=== PATIENT | female | born 1975 | race Hispanic/Latino ===

== ENCOUNTER → 2017-06-23 | Outpatient (CLI) | payer OTHER ==
[~2017-06-23] VITALS: Ht 10.2 cm; Wt 109.8 kg
[~2017-06-23] MED LIST: AMOX-426 PO; ZOLP10TA2 PO
== END | disposition home or self-care (01) ==
LOC: DTH 09:41 → MERGE 09:41
PROVIDERS: ATTEND Surgery
DX: E11.9 Type 2 diabetes mellitus without complications (principal); E66.09 Other obesity due to excess calories
CPT/HCPCS: 97802

== ENCOUNTER → 2017-07-29 | Outpatient (CLI) | payer OTHER | END | disposition home or self-care (01) | LOC: DTH 07-28 11:02 → MERGE 10:25 | PROVIDERS: ATTEND Surgery | DX: E11.9 Type 2 diabetes mellitus without complications (principal); E66.09 Other obesity due to excess calories | CPT/HCPCS: 97803 ==

== ENCOUNTER 2017-11-14 10:40 | Emergency (ER) | payer OTHER ==
[~2017-11-14 10:40] MED LIST changes: -AMOX-426 PO; +MV-M1TAB20 PO; -ZOLP10TA2 PO
[2017-11-14] MEDS ORDERED: LIDOCAINE HCL 2% VISCOUS 15 ML UDCUP ONE (11:03)
[2017-11-14] MEDS ORDERED: ONDANSETRON ODT 4 MG TAB ONE (11:04)
[2017-11-14] MEDS ORDERED: MORPHINE SULFATE 4 MG/1ML SYG ONE (11:04)
== END 2017-11-14 12:47 | disposition home or self-care (01) ==
LOC: EDH 10:40
DX: T21.22XA Burn of second degree of abdominal wall, initial encounter (principal); T31.0 Burns involving less than 10% of body surface; Z88.1 Allergy status to other antibiotic agents; X11.8XXA Contact with other hot tap-water, initial encounter; Y93.G3 Activity, cooking and baking; Y92.098 Other place in other non-institutional residence as the place of occurrence of the external cause; Y99.8 Other external cause status
CPT/HCPCS: 16020; 96372; 99284; J2270

== ENCOUNTER → 2018-06-24 | Outpatient (CLI) | payer OTHER ==
[~2018-06-24] MED LIST changes: +IOHEXOL 350 MG/ML 100ML INFUS..BTL IV ONE
== END | disposition home or self-care (01) ==
LOC: RAH 07:55
PROVIDERS: ATTEND Internal Medicine Gastroenterology
DX: K76.89 Other specified diseases of liver (principal); K43.9 Ventral hernia without obstruction or gangrene
CPT/HCPCS: 74178; Q9967

== ENCOUNTER 2018-10-12 21:59 | Emergency (ER) | payer OTHER ==
[~2018-10-12 21:59] MED LIST changes: -IOHEXOL 350 MG/ML 100ML INFUS..BTL IV ONE
[2018-10-12] MEDS ORDERED: CEFTRIAXONE SODIUM 1 GM ONE (22:27)
[2018-10-12] MEDS ORDERED: KETOROLAC TROMETHAMINE 30MG/ML ONE (22:27)
[2018-10-12 22:39] LABS: APPEARANCE,URINE Cloudy (CLEAR); BILIRUBIN,URINE Negative (NEGATIVE); COLOR,URINE Yellow (YELLOW); GLUCOSE, URINE (UA) Negative (NEGATIVE); KETONES,URINE Negative (NEGATIVE); LEUKOCYTE ESTERASE ,URINE Small (NEGATIVE); NITRATE,URINE Positive (NEGATIVE); OCCULT BLOOD,URINE Negative (NEGATIVE); PH,URINE 5.5 (5.0-8.0); PROTEIN,URINE Negative (NEGATIVE)
[2018-10-12 22:58] LABS: BACTERIA,URINE Many /HPF (None Seen); RBC,URINE 0-1 /HPF (0-1)
== END 2018-10-12 23:08 | disposition home or self-care (01) ==
LOC: EDH 21:59
DX: N39.0 Urinary tract infection, site not specified (principal); F32.9 Major depressive disorder, single episode, unspecified; F41.9 Anxiety disorder, unspecified; Z98.890 Other specified postprocedural states
CPT/HCPCS: 81001; 87077; 87088; 87186; 96372 ×2; 99284; J0696; J1885

== ENCOUNTER 2021-08-09 23:24 | Emergency (ER) | payer OTHER ==
[~2021-08-09] VITALS: Ht 165.1 cm; Wt 92.1 kg
[2021-08-10 00:07] LABS: BASOPHILS % (AUTO) 0.5 % (0.0-5.0); EOSINOPHILS % (AUTO) 2.9 % (0.0-8.0); HEMATOCRIT 40.9 % (36-48); LYMPHOCYTES % (AUTO) 24.6 % (21.0-51.0); MEAN CORPUSCULAR HEMOGLOBIN 26.7 pg (27.0-33.0); MEAN CORPUSCULAR VOLUME 83.3 fL (79-99); NEUTROPHILS % (AUTO) 65.8 % (40.0-77.0); PLATELET COUNT (AUTO) 238 K/uL (130-400); RED BLOOD CELL COUNT(AUTO) 4.91 MIL/uL (4.00-5.50); RED CELL DISTRIBUTION WIDTH 13.2 % (11.0-15.5); WHITE BLOOD COUNT (AUTO) 9.2 K/uL (4.8-10.8)
[2021-08-10 00:16] LABS: CREATININE 0.7 mg/dL (0.5-1.5); POTASSIUM 3.8 mmol/L (3.5-5.1)
[2021-08-10 00:20] LABS: ALBUMIN 3.8 g/dL (3.5-5.0); BILIRUBIN,TOTAL 0.3 mg/dL (0.2-1.0); TOTAL PROTEIN, SERUM 7.6 g/dL (6.0-8.3)
[2021-08-10 00:50] LABS: APPEARANCE,URINE CLEAR (CLEAR); BILIRUBIN,URINE NEGATIVE (NEGATIVE); COLOR,URINE YELLOW (YELLOW); GLUCOSE, URINE (UA) 250 mg/dL (NEGATIVE); KETONES,URINE NEGATIVE (NEGATIVE); LEUKOCYTE ESTERASE ,URINE NEGATIVE (NEGATIVE); NITRATE,URINE POSITIVE (NEGATIVE); OCCULT BLOOD,URINE TRACE-INTACT (NEGATIVE); PROTEIN,URINE NEGATIVE (NEGATIVE); UROBILINOGEN,URINE 0.2 mg/dL (0.2-1.0)
[2021-08-10 00:51] LABS: HCG,QUAL RESULT NEGATIVE (NEGATIVE)
[2021-08-10 01:08] LABS: BACTERIA,URINE Moderate /HPF (None Seen); MUCUS,URINE Rare LPF (None Seen); RBC,URINE 0-1 /HPF (0-1); SQUAMOUS EPITHELIAL CELL,UR Few /HPF (0-2); WBC,URINE None Seen /HPF (0-1)
[2021-08-10] MEDS ORDERED: KETOROLAC 60 MG VIAL (30MG/ML) IM ONE (02:00)
[2021-08-10] MEDS ORDERED: CEFTRIAXONE 1G VIAL IM ONE (02:00)
[2021-08-10] MEDS ORDERED: CEPH500B PO (02:05)
[2021-08-10 02:15] VITALS: BP 116/72
== END 2021-08-10 02:36 | disposition home or self-care (01) ==
LOC: EDH 23:24
DX: N39.0 Urinary tract infection, site not specified (principal); Z88.8 Allergy status to other drugs, medicaments and biological substances; Z98.890 Other specified postprocedural states; Z90.49 Acquired absence of other specified parts of digestive tract
CPT/HCPCS: 36415; 80053; 81001; 81025; 83690; 84484; 85025; 87077; 87088; 87186; 93005; 96372 ×2; 99284; J0696; J1885

== ENCOUNTER → 2021-12-17 | Outpatient (CLI) | payer OTHER ==
[~2021-12-17] MED LIST changes: +CEPH500B PO
== END | disposition home or self-care (01) ==
LOC: RAH 08:35
PROVIDERS: ATTEND Surgery
DX: K21.9 Gastro-esophageal reflux disease without esophagitis (principal); R13.10 Dysphagia, unspecified; Z98.84 Bariatric surgery status
CPT/HCPCS: 74240

== ENCOUNTER 2021-12-29 07:02 | Day surgery (SDC) | payer OTHER ==
[~2021-12-29] VITALS: Ht 162.6 cm; Wt 94.3 kg
[2021-12-29] VITALS (7 sets, daily range): BP systolic 105–118; BP diastolic 62–74
[2021-12-29] MEDS ORDERED: 0.9%NACL 1000ML 1,000 ML IV ONE (07:04)
[2021-12-29] MEDS ORDERED: VITAD50000 PO (08:11)
[2021-12-29] MEDS ORDERED: SODIUM TETRADECYL SULFATE 30 MG/ML 2 ML VIAL IV SCH (08:30)
[2021-12-29] MEDS ORDERED: PROPOFOL 10 MG/ML 20ML VIAL IV ONE (08:55)
[2021-12-29] MEDS ORDERED: MEPERIDINE-PF 25 MG/ML SYG ONE (09:36)
== END 2021-12-29 09:41 | disposition home or self-care (01) ==
LOC: DAH 07:02
PROVIDERS: ATTEND Surgery
DX: R13.10 Dysphagia, unspecified (principal); Z20.822 Contact with and (suspected) exposure to COVID-19; E66.01 Morbid (severe) obesity due to excess calories; F41.9 Anxiety disorder, unspecified; F32.A Depression, unspecified; Z90.49 Acquired absence of other specified parts of digestive tract; Z98.890 Other specified postprocedural states; Z90.710 Acquired absence of both cervix and uterus; Z98.891 History of uterine scar from previous surgery; Z83.3 Family history of diabetes mellitus; Z98.84 Bariatric surgery status; Z80.9 Family history of malignant neoplasm, unspecified; Z87.891 Personal history of nicotine dependence; Z68.34 Body mass index [BMI] 34.0-34.9, adult
CPT/HCPCS: 87426; 43236; J7030 ×2; J2704; J2175; J3490; A4620; A4215; A4223; A4657; A4222; A4221; A4663; A4216; A4606; 43253

== ENCOUNTER 2022-01-30 07:07 | Day surgery (SDC) | payer OTHER ==
[~2022-01-30] VITALS: Ht 162.6 cm; Wt 93.9 kg
[~2022-01-30 07:07] MED LIST changes: -CEPH500B PO; -MV-M1TAB20 PO; +TIRZ10PE SQ; +VITAD50000 PO
[2022-01-30 07:33] VITALS: BP 111/66
[2022-01-30] MEDS ORDERED: 0.9%NACL 1000ML 1,000 ML IV ONE (07:36)
[2022-01-30] MEDS ORDERED: PROPOFOL 10 MG/ML 20ML VIAL IV ONE (08:05)
[2022-01-30] MEDS ORDERED: LIDOCAINE PF 100MG/5ML (2%) SYRINGE 5ML ONE (08:05)
[2022-01-30] MEDS ORDERED: FENTANYL CITRATE PF 50 MCG/1 ML 2ML VIAL ONE (08:08)
[2022-01-30] MEDS ORDERED: ONDANSETRON 4MG INJ ONE (08:08)
[2022-01-30 08:30] VITALS: BP 105/67
[2022-01-30] MEDS ORDERED: SODIUM TETRADECYL SULFATE 30 MG/ML 2 ML VIAL IV ONE (08:30)
== END 2022-01-30 09:15 | disposition home or self-care (01) ==
LOC: DAH 07:07
PROVIDERS: ATTEND Surgery
DX: K21.9 Gastro-esophageal reflux disease without esophagitis (principal); Z20.822 Contact with and (suspected) exposure to COVID-19; R13.10 Dysphagia, unspecified; F41.9 Anxiety disorder, unspecified; F32.A Depression, unspecified; E66.01 Morbid (severe) obesity due to excess calories; Z90.710 Acquired absence of both cervix and uterus; Z98.84 Bariatric surgery status; Z98.891 History of uterine scar from previous surgery; Z98.890 Other specified postprocedural states; Z83.3 Family history of diabetes mellitus; Z80.9 Family history of malignant neoplasm, unspecified; Z87.891 Personal history of nicotine dependence; Z68.34 Body mass index [BMI] 34.0-34.9, adult
CPT/HCPCS: 87426; 43236; J3010; J7030; J2001; J2704; J2405; J3490; A4620; A4215 ×2; A4223; A4657; A4222; A4221; A4663; A4216; A4606

== ENCOUNTER 2022-08-31 13:21 | Emergency (ER) | payer OTHER ==
[~2022-08-31 13:21] MED LIST changes: -VITAD50000 PO
[2022-08-31 13:48] LABS: BASOPHILS % (AUTO) 0.6 % (0.0-5.0); EOSINOPHILS % (AUTO) 2.6 % (0.0-8.0); HEMATOCRIT 42.3 % (36-48); MEAN CORPUSCULAR HEMOGLOBIN 27.1 pg (27.0-33.0); MEAN CORPUSCULAR HGB CONC 31.9 g/dL (32.0-36.0); MEAN CORPUSCULAR VOLUME 84.9 fL (79-99); MONOCYTES % (AUTO) 6.7 % (3.0-13.0); NEUTROPHILS % (AUTO) 66.7 % (40.0-77.0); PLATELET COUNT (AUTO) 241 K/uL (130-400); RED BLOOD CELL COUNT(AUTO) 4.98 MIL/uL (4.00-5.50); RED CELL DISTRIBUTION WIDTH 14.2 % (11.0-15.5); WHITE BLOOD COUNT (AUTO) 8.1 K/uL (4.8-10.8)
[2022-08-31 14:03] LABS: APPEARANCE,URINE CLOUDY (CLEAR); BILIRUBIN,URINE NEGATIVE (NEGATIVE); COLOR,URINE YELLOW (YELLOW); GLUCOSE, URINE (UA) NEGATIVE (NEGATIVE); KETONES,URINE NEGATIVE (NEGATIVE); LEUKOCYTE ESTERASE ,URINE 75 Leu/uL (NEGATIVE); NITRATE,URINE 2+ (NEGATIVE); OCCULT BLOOD,URINE NEGATIVE (NEGATIVE); PROTEIN,URINE NEGATIVE (NEGATIVE); UROBILINOGEN,URINE 0.2 mg/dL (0.2-1.0)
[2022-08-31 14:05] LABS: HCG,QUALITATIVE URINE NEGATIVE (NEGATIVE)
[2022-08-31 14:07] LABS: ALBUMIN 3.9 g/dL (3.5-5.0); CREATININE 0.7 mg/dL (0.5-1.5); POTASSIUM 3.9 mmol/L (3.5-5.1); TOTAL PROTEIN, SERUM 7.6 g/dL (6.0-8.3)
[2022-08-31 14:18] LABS: BACTERIA,URINE MANY /HPF (None Seen); MUCUS,URINE RARE LPF (None Seen); OTHER CASTS, URINE 1 /LPF (None Seen); RBC,URINE 0-1 /HPF (0-1); SQUAMOUS EPITHELIAL CELL,UR FEW /HPF (0-2); WBC,URINE 26-50 /HPF (0-1)
[2022-08-31] MEDS ORDERED: CEPH500B PO (16:09)
[2022-08-31] MEDS ORDERED: IBUPROFEN 200 MG TAB ONE (16:11)
[2022-08-31] MEDS ORDERED: IBUPROFEN 400 MG TABLET ONE (16:12)
[2022-08-31] MEDS ORDERED: ONDANSETRON ODT 4MG TAB ONE (16:32)
[2022-08-31 17:02] VITALS: BP 114/75
== END 2022-08-31 17:07 | disposition home or self-care (01) ==
LOC: EDH 13:21
DX: N39.0 Urinary tract infection, site not specified (principal); R11.2 Nausea with vomiting, unspecified; Z88.1 Allergy status to other antibiotic agents; Z90.710 Acquired absence of both cervix and uterus; Z90.49 Acquired absence of other specified parts of digestive tract
CPT/HCPCS: 36415; 74176; 76705; 80053; 81001; 81025; 83690; 85025; 87077; 87088; 87186

== ENCOUNTER 2022-10-26 23:34 | Emergency (ER) | payer OTHER ==
[~2022-10-26] VITALS: Ht 165.1 cm; Wt 85.3 kg
[~2022-10-26 23:34] MED LIST changes: +CEPH500B PO
[2022-10-26 23:37] VITALS: BP 136/88; PULSE 105; RESP 18
[2022-10-27 00:46] LABS: APPEARANCE,URINE TURBID (CLEAR); BILIRUBIN,URINE NEGATIVE (NEGATIVE); COLOR,URINE DARK-YELLOW (YELLOW); GLUCOSE, URINE (UA) NEGATIVE (NEGATIVE); KETONES,URINE NEGATIVE (NEGATIVE); LEUKOCYTE ESTERASE ,URINE 250 Leu/uL (NEGATIVE); NITRATE,URINE 1+ (NEGATIVE); OCCULT BLOOD,URINE SMALL (NEGATIVE); PH,URINE 7.5 (5.0-8.0); PROTEIN,URINE 100 mg/dL (NEGATIVE); UROBILINOGEN,URINE 0.2 mg/dL (0.2-1.0)
[2022-10-27 00:48] LABS: ADD UA MICROSCOPIC YES
[2022-10-27 00:51] LABS: BACTERIA,URINE MOD /HPF (None Seen); CALCIUM OXALATE CRYSTALS,UR RARE /LPF (None Seen); MUCUS,URINE FEW LPF (None Seen); RBC,URINE 26-50 /HPF (0-1); SQUAMOUS EPITHELIAL CELL,UR RARE /HPF (0-2); TRANSITIONAL EPI CELLS,URINE RARE /HPF (None Seen); WBC CLUMP MANY /HPF (0-1); WBC,URINE TNTC /HPF (0-1)
[2022-10-27] MEDS ORDERED: 0.9%NACL 1000ML 1,000 ML IV ONE (03:00)
[2022-10-27] MEDS ORDERED: KETOROLAC 30MG VIAL (30MG/ML) IVP ONE (03:00)
[2022-10-27] MEDS ORDERED: FAMOTIDINE 20MG VIAL IV ONE (03:00)
[2022-10-27] MEDS ORDERED: METOCLOPRAMIDE 10 MG/2 ML VIAL IVP ONE (03:00)
[2022-10-27 03:07] LABS: BASOPHILS # (AUTO) 0.04 K/uL (0.00-0.20); BASOPHILS % (AUTO) 0.4 % (0.0-5.0); EOSINOPHILS # (AUTO) 0.21 K/uL (0.00-0.70); EOSINOPHILS % (AUTO) 2.2 % (0.0-8.0); HEMATOCRIT 36.3 % (36-48); IMMATURE GRANULOCYTE ABSOLUTE 0.13 K/uL (0-1); LYMPHOCYTES # (AUTO) 1.8 K/uL (1.0-4.8); LYMPHOCYTES % (AUTO) 19.2 % (21.0-51.0); MEAN CORPUSCULAR HEMOGLOBIN 27.4 pg (27.0-33.0); MEAN CORPUSCULAR HGB CONC 31.7 g/dL (32.0-36.0); MEAN CORPUSCULAR VOLUME 86.6 fL (79-99); MONOCYTES # (AUTO) 0.5 K/uL (0.1-1.0); MONOCYTES % (AUTO) 5.8 % (3.0-13.0); NEUTROPHILS # (AUTO) 6.6 K/uL (1.8-7.7); PLATELET COUNT (AUTO) 182 K/uL (130-400); RED BLOOD CELL COUNT(AUTO) 4.19 MIL/uL (4.00-5.50); RED CELL DISTRIBUTION WIDTH 14.9 % (11.0-15.5); WHITE BLOOD COUNT (AUTO) 9.3 K/uL (4.8-10.8)
[2022-10-27 03:22] LABS: ALBUMIN 3.3 g/dL (3.5-5.0); BILIRUBIN,TOTAL 0.6 mg/dL (0.2-1.0); CREATININE 0.6 mg/dL (0.5-1.5); TOTAL PROTEIN, SERUM 6.9 g/dL (6.0-8.3)
[2022-10-27] MEDS ORDERED: MORPHINE 4 MG SYG IVP ONE (04:00)
[2022-10-27] MEDS ORDERED: CEPH500B PO (05:24)
[2022-10-27] MEDS ORDERED: ACET-2079 PO (05:24)
[2022-10-27] MEDS ORDERED: PHEN-847 PO (05:24)
[2022-10-27] MEDS ORDERED: CEFTRIAXONE 2GM VIAL IVPB ONE (05:30)
[2022-10-27] MEDS ORDERED: PHENAZOPYRIDINE HCL 200 MG TABLET PO ONE (05:30)
== END 2022-10-27 05:50 | disposition home or self-care (01) ==
LOC: EDH 23:34
DX: N30.90 Cystitis, unspecified without hematuria (principal); Z88.1 Allergy status to other antibiotic agents; Z98.84 Bariatric surgery status; Z90.710 Acquired absence of both cervix and uterus
CPT/HCPCS: 99285; 80053; 83690; 85025; 87077; 87088; 87186; 81001; 81025; 36415; 74176; 96365; 96375; 96361; J3490; J7030; J0696; J2270; J1885; J2765